=== PATIENT | male | born 1970 | race Caucasian/White ===

== ENCOUNTER 2018-11-30 16:41 | Outpatient (REF) | payer BC, SELFPAY ==
[2018-11-30 23:02] LABS: TSH (W/Ref FT4) 1.11 uIU/mL (0.358-3.74)
== END 2018-11-30 17:01 ==
LOC: NCHCN 16:41
PROVIDERS: PCP Internal Medicine; Visit Provider Family Medicine
DX: E03.9 Hypothyroidism, unspecified (principal)
CPT/HCPCS: 84443

== ENCOUNTER 2019-05-18 09:52 | Outpatient (REF) | payer BC, SELFPAY ==
[2019-05-18 12:57] LABS: ALT 51 U/L (12-78); AST 23 U/L (15-37); Albumin 4.2 g/dL (3.4-5.0); Alkaline Phosphatase 73 U/L (46-116); Anion Gap 12.6 mmol/L (3-11); BUN 14 mg/dL (7-18); Bilirubin, Total 0.6 mg/dL (0.2-1.0); CO2 23.4 mmol/L (21.0-32.0); CREATININE 1.05 mg/dL (0.70-1.30); Calcium 8.7 mg/dL (8.5-10.1); Calculated LDL 110 mg/dL; Chloride 105 mmol/L (98-107); Cholesterol 170 mg/dL (50-200); Glucose 115 mg/dL (70-100); HDL Cholesterol 47 mg/dL (40-60); Potassium 4.4 mmol/L (3.5-5.1); Sodium 141 mmol/L (136-145); Total Protein 7.3 g/dL (6.4-8.2); Triglyceride 65 mg/dL (30-150)
== END 2019-05-18 10:12 ==
LOC: NCHCN 09:52
PROVIDERS: PCP Internal Medicine; Visit Provider Family Medicine
DX: Z00.00 Encounter for general adult medical examination without abnormal findings (principal); I10 Essential (primary) hypertension; Z13.220 Encounter for screening for lipoid disorders
CPT/HCPCS: 80053; 80061; 83721

== ENCOUNTER 2019-10-06 09:39 | Outpatient (CLI) | payer BC, SELFPAY ==
--- NOTE | 2019-10-06 14:50 | DI.MRI_ITS ---
EXAM: MR LUMBAR SPINE WO CLINICAL HISTORY: LUMBAR RADICULOPATHY, LEFT M54.16, FOOT DROP. TECHNIQUE: Multiplanar multisequence MRI was performed. COMPARISON: ABD PELVIS WITH CONTRAST from 08/08/2012 FINDINGS: L1-2: Mild concentric disc bulging. L2-3: Moderate loss of disc height, endplate osteophytes and broad-based disc bulging. There is a gerardo perimposed small central disc protrusion. Mild to moderate facet degenerative changes and ligamentou s hypertrophy combine to produce moderate to severe central canal stenosis. [id number] bilater al neural foraminal narrowing. L3-4: Mild loss of disc height. Concentric disc bulging. Moderate facet degenerative changes and li gamentous hypertrophy combining to produce mild central canal stenosis. There is moderate left and s evere right neural foraminal narrowing. L4-5: Mild loss of disc height and broad-based disc bulging, eccentric toward the right. Mild-to-mod erate facet degenerative changes and ligamentous hypertrophy combining to produce moderate central ca nal stenosis as well as severe right and moderate left neural foraminal narrowing. L5-S1: Mild loss of disc height. Mild concentric disc bulging. Mild facet degenerative changes. Mi ld right neural foraminal narrowing. Moderate left neural foraminal narrowing. The conus medullaris appears normal. The aorta is normal in diameter. There is a mild degenerative scoliosis. Cord signal is normal with the exception of degenerative signal changes in the endplates. IMPRESSION: Degenerative disc changes and facet degenerative changes combine to produce central canal stenosis, g reatest at L2-3 where there is also a small superimposed central disc protrusion. There is multileve l bilateral neural foraminal narrowing.
== END 2019-10-06 09:59 ==
PROVIDERS: PCP Family Medicine; Visit Provider Specialist/Technologist Athletic Trainer
DX: M54.17 Radiculopathy, lumbosacral region (principal); M51.17 Intervertebral disc disorders with radiculopathy, lumbosacral region; M47.27 Other spondylosis with radiculopathy, lumbosacral region
CPT/HCPCS: 72148

== ENCOUNTER 2021-08-17 16:44 | Outpatient (REF) | payer BC, SELFPAY ==
[2021-08-17 20:46] LABS: ALT 42 U/L (16-63); AST 20 U/L (15-37); Albumin 4.6 g/dL (3.4-5.0); Alkaline Phosphatase 59 U/L (46-116); Anion Gap 9.2 mmol/L (3-11); BUN 23 mg/dL (7-18); Bilirubin, Total 0.4 mg/dL (0.2-1.0); CO2 25.8 mmol/L (21.0-32.0); CREATININE 1.1 mg/dL (0.70-1.30); Calculated LDL 107 mg/dL (<100); Chloride 103 mmol/L (98-107); Cholesterol 181 mg/dL (<200); Glucose 96 mg/dL (74-106); HDL Cholesterol 55 mg/dL (40-60); Potassium 4.5 mmol/L (3.5-5.1); Sodium 138 mmol/L (136-145); TSH (W/Ref FT4) 2.48 uIU/mL (0.36-3.74); Total Protein 7.7 g/dL (6.4-8.2); Triglyceride 96 mg/dL (<150)
[2021-08-17 21:05] LABS: Hemoglobin A1C 6.2 % (<5.7)
== END 2021-08-17 16:45 | disposition home or self-care (01) ==
LOC: NCHCN 16:44
PROVIDERS: PCP Family Medicine; Visit Provider Family Medicine
DX: R73.03 Prediabetes (principal); I10 Essential (primary) hypertension; E03.9 Hypothyroidism, unspecified
CPT/HCPCS: 80053; 80061; 83036; 84443

== ENCOUNTER 2022-12-19 10:12 | Outpatient (REF) | payer BC, SELFPAY | END 2022-12-19 10:13 | disposition home or self-care (01) | LOC: LBN 10:12 | PROVIDERS: PCP Family Medicine; Visit Provider Physician Assistant Medical | DX: J02.9 Acute pharyngitis, unspecified (principal) | CPT/HCPCS: 87077; 87070 ==

== ENCOUNTER 2023-03-31 16:39 | Outpatient (REF) | payer BC, SELFPAY ==
[2023-03-31 15:29] LABS: Abs Immature Grans 0.05 10^3/uL (0.0-0.06); Absolute Basophil Count 0.06 10^3/uL (0.0-0.2); Absolute Eosinophil Count 0.05 10^3/uL (0.0-0.7); Absolute Lymphocyte Count 0.63 10^3/uL (1.2-3.4); Absolute Monocyte Count 0.48 10^3/uL (0.1-0.8); Absolute Neutrophil Count 3.23 10^3/uL (1.2-6.7); Basophils % 1.3; Eosinophils % 1.1; HCT 43.2 % (40.0-50.0); HGB 14.8 g/dL (13.5-17.5); Immature Grans % 1.1; MCH 30.3 pg (27.0-33.0); MCHC 34.3 % (32.0-36.0); MCV 88 fL (80-95); MPV 9.7 fL (8.0-11.0); Monocytes % 10.7; Neutrophils % 71.8; Platelet Count 212 10^3/uL (130-400); RBC 4.89 10^6/uL (4.36-5.78); RDW 12.8 % (11.8-14.1); RDW-SD 41.7 fL
[2023-03-31 15:56] LABS: ALT 56 U/L (16-63); AST 31 U/L (15-37); Albumin 4.5 g/dL (3.4-5.0); Alkaline Phosphatase 70 U/L (46-116); Anion Gap 4.9 mmol/L (3-11); BUN 16 mg/dL (7-18); Bilirubin, Total 0.5 mg/dL (0.2-1.0); CO2 26.1 mmol/L (21.0-32.0); Calcium 9.1 mg/dL (8.5-10.1); Chloride 103 mmol/L (98-107); Estimated GFR 91.69 (mL/min/1.73m2); Glucose 135 mg/dL (74-106); Potassium 4.1 mmol/L (3.5-5.1); Sodium 134 mmol/L (136-145); Total Protein 7.6 g/dL (6.4-8.2)
[2023-04-01 10:32] LABS: Lyme Ab w Rflx to Lyme Confirm Negative (Negative)
[2023-04-03 23:25] LABS: B. miyamotoi PCR Negative (Negative); Babesia divergens/MO-1 Negative (Negative); Babesia duncani Negative (Negative); Babesia microti Negative (Negative); Ehrlichia chaffeensis Negative (Negative); Ehrlichia ewingii/canis Negative (Negative); Ehrlichia muris eauclairensis Negative (Negative)
[2023-04-04 00:44] LABS: Anaplasma phagocytophilum Positive (Negative)
== END 2023-03-31 16:40 | disposition home or self-care (01) ==
LOC: LBN 16:39
PROVIDERS: PCP Family Medicine; Visit Provider Nurse Practitioner Family
DX: W57.XXXA Bitten or stung by nonvenomous insect and other nonvenomous arthropods, initial encounter (principal); T14.8XXA Other injury of unspecified body region, initial encounter
CPT/HCPCS: 80053; 87798; 85025; 86618

== ENCOUNTER 2023-04-01 10:53 | Emergency (ER) | payer BC, SELFPAY ==
[2023-04-01 10:55] VITALS: BP 137/95; PULSE 83; RESP 16; O2SAT 99
--- NOTE | 2023-04-01 11:00 | RT.EKG_ITS ---
APPROVED REPORT Exam: Resting ECG Reason for Exam: syncopal episode Patient Location: E HR:80 bpm ECG Measurements Heart Rate 80 AXIS OH 200 P 31 QRSd 99 QRS -14 QT 343 T 25 QTc 396 Conclusion Sinus rhythm...normal P axis, V-rate 60- 99 Probable left atrial enlargement...P >50mS, <-0.10mV V1 Probable left ventricular hypertrophy...multiple LVH criteria sinus rhtythm, left axis, normal intervals non ischemic
[2023-04-01 11:10] VITALS: RESP 15
--- NOTE | 2023-04-01 11:30 | DI.RAD_ITS ---
Exam(s) XR CHEST 2V PA LATERAL EXAM: XR CHEST 2V PA LATERAL CLINICAL HISTORY: chills, sweats TECHNIQUE: 2D digital imaging was performed of the chest. Two images were obtained. PA and lateral views were obtained. COMPARISON: No exams were available for comparison FINDINGS: MEDIASTINUM: Normal. HEART: Normal. PULMONARY VASCULATURE: Normal. LUNGS: There is linear atelectasis in the left lung base. No focal consolidating infiltrates are pre sent. PLEURAL SPACE: No pleural effusion or pneumothorax. BONE:Within normal limits for the patient's age. OTHER FINDINGS:Normal. IMPRESSION: No acute pulmonary findings. DATA REPOSITORY: RADIATION DOSE DELIVERED:
--- NOTE | 2023-04-01 11:39 | W.ED.GENAD ---
Discharge Plan Disposition Patient Disposition: Home Discharge Details Chief Complaint: [id number] Clinical Impression: Chills, Cold sweat Primary Care Provider: Aline Rogers ED Provider: Zay Nair Home Meds and New Rx's Prescriptions: No Action levothyroxine 137 MCG tablet 150 mcg PO DAILY naproxen sodium [Aleve] 220 MG capsule 220 mg PO PRN PRN hydrocodone-acetaminophen 1 EACH tablet 1 ea PO QID PRN PRN (Reason: Pain) Qty: 12 0RF cyclobenzaprine 10 MG tablet 10 mg PO TID PRN PRN (Reason: Spasms) Qty: 10 0RF methylprednisolone 4 MG tablets,dose pack 4 mg PO DIRECTED Qty: 1 0RF losartan 100 mg tablet 100 mg PO DAILY doxycycline hyclate 100 mg tablet 100 mg PO BID Discharge Instructions Additional Instructions: Please continue with your antibiotics as prescribed. Please return to the emergency part for any worsening symptoms Stand Alone Forms: Work Release Medical Decision Making 52-year-old male recent tick removed from right side approximately 1 week ago, has had intermittent chills and sweating episodes over the past week, no chest pain or shortness of breath no respiratory symptoms no urinary symptoms no nausea or vomiting or diarrhea. Small scab on right thoracic wall without surrounding induration erythema or fluctuance. Per patient blood cultures tick panel and COVID analysis were performed at urgent care, will start empirically on doxycycline given tick removal and sweats/chills. Consider viral illness versus bacterial illness versus tickborne illness versus ACS. Will obtain screening labs imaging fluids analgesia close reassessment. Given afebrile nontachycardic normotensive will likely be discharged home with home care instructions and return precautions. To follow-up on tick panel and blood cultures 14: 18 resting comfortably no acute distress. Labs unremarkable. Awaiting results from tick and blood culture panel. Patient will continue with doxycycline. Given home care instructions and return precautions HPI General Date/Time Provider Initiated Documentation: 04/01/23 11:31. HPI Narrative: 52-year-old male presents with several days of intermittent chills and sweats, was seen at urgent care where blood cultures and a tick panel were drawn as well as a COVID screening, will start empirically on doxycycline. Has had intermittent sweating episodes and fatigue over the last several days. No chest pain or shortness of breath no nausea no vomiting no diarrhea. Currently feeling asymptomatic. Related Data Home Medications Medication Instructions Recorded Confirmed cyclobenzaprine 10 mg tablet 10 mg PO TID PRN PRN Spasms #10 11/05/15 tabs hydrocodone 5 mg-acetaminophen 325 1 ea PO QID PRN PRN Pain ##12 11/05/15 mg tablet levothyroxine 137 mcg tablet 150 mcg PO DAILY 11/05/15 04/01/23 methylprednisolone 4 mg tablets in 4 mg PO DIRECTED #1 packet 11/05/15 a dose pack naproxen sodium 220 mg capsule 220 mg PO PRN PRN 11/05/15 04/01/23 (Aleve) doxycycline hyclate 100 mg tablet 100 mg PO BID 04/01/23 04/01/23 losartan 100 mg tablet 100 mg PO DAILY 04/01/23 04/01/23 Previous Rx's Medication Instructions Recorded cyclobenzaprine 10 mg tablet 10 mg PO TID PRN PRN Spasms #10 11/05/15 tabs hydrocodone 5 mg-acetaminophen 325 1 ea PO QID PRN PRN Pain ##12 11/05/15 mg tablet methylprednisolone 4 mg tablets in 4 mg PO DIRECTED #1 packet 11/05/15 a dose pack Allergies Allergy/AdvReac Type Severity Reaction Status Date / Time ceramic dust Allergy Uncoded 04/01/23 11:04 General Stated Complaint: [id number] CHRISTOPHER: 3 Review of Systems Narrative: Review of Systems Constitutional: Fatigue, chills, sweats Eyes: negative ENT: negative Cardiovascular: negative Respiratory: negative Gastrointestinal: negative : negative Musculoskeletal: negative Skin: negative Neurologic: negative Psych: negative PFSH All Active Problems (Updated 04/01/23 @ 14:20 by Zay Nair MD) Chills (Acute) Cold sweat (Acute) Social History Smoking/Tobacco Use Status: Current every day Tobacco Type: smokeless tobacco Smoking risk assessment performed?: Yes Alcohol Intake: never Drug use: Never Substance use type: does not use Do you feel safe at home: Yes Do you feel safe in your relationship?: Yes Exam Narrative Exam Narrative: Physical Examination General: alert, awake, cooperative, resting comfortably, no acute distress HEENT: normocephalic, atraumatic; PERRL, EOM intact, conjunctiva normal; no nasal discharge; moist mucous membranes, oral and pharyngeal mucosa normal, tolerating secretions Neck: supple, trachea midline; full ROM Chest: normal to inspection Respiratory: normal respiratory effort, speaking in full sentences, clear to auscultation, no wheezing, rales or rhonchi Cardiac: regular rate, regular rhythm, S1S2 intact, no murmurs rubs or gallops GI: abdomen soft, non-tender, non-distended; no palpable mass or hepatosplenomegaly Skin: Small scab right lateral thoracic wall where tick was removed, no surrounding erythema induration or fluctuant Neuro: AAOx3, normal speech, moving all extremities Psych: Appropriate mood and affect Course Vital Signs Vital signs: Vital Signs Pulse 83 04/01/23 10:55 Respiratory Rate 16 04/01/23 10:55 Blood Pressure 137/95 H 04/01/23 10:55 Pulse Oximetry 99 04/01/23 10:55 Pulse 83 04/01/23 10:55 Respiratory Rate 15 04/01/23 11:10 Respiratory Effort Normal 04/01/23 11:10 Respiratory Depth Normal 04/01/23 11:10 Respiratory Pattern Normal 04/01/23 11:10 Blood Pressure 137/95 H 04/01/23 10:55 Blood Pressure Position Sitting 04/01/23 10:55 Pulse Oximetry 99 04/01/23 10:55 Oxygen Delivery Method Room Air 04/01/23 10:55 Oxygen Flow Rate 0 04/01/23 10:55 Pain Level 0 04/01/23 10:55
[2023-04-01] MEDS: Normal Saline 1,000 ML 1000 ML IV (11:52)
[2023-04-01 11:53] LABS: Abs Immature Grans 0.04 10^3/uL (0.0-0.06); Absolute Basophil Count 0.04 10^3/uL (0.0-0.2); Absolute Eosinophil Count 0.03 10^3/uL (0.0-0.7); Absolute Lymphocyte Count 0.36 10^3/uL (1.2-3.4); Absolute Monocyte Count 0.48 10^3/uL (0.1-0.8); Basophils % 0.9; Eosinophils % 0.7; HCT 45.2 % (40.0-50.0); HGB 15.4 g/dL (13.5-17.5); Immature Grans % 0.9; Lymphocytes % 8.4; MCHC 34.1 % (32.0-36.0); MCV 88 fL (80-95); MPV 9.1 fL (8.0-11.0); Monocytes % 11.2; Neutrophils % 77.9; Platelet Count 169 10^3/uL (130-400); RBC 5.14 10^6/uL (4.36-5.78); RDW 12.9 % (11.8-14.1); RDW-SD 41.6 fL; WBC 4.27 10^3/uL (4.4-10.8)
[2023-04-01 11:55] LABS: Absolute Neutrophil Count 3.33 10^3/uL (1.2-6.7)
[2023-04-01 12:21] LABS: ALT 76 U/L (16-63); AST 49 U/L (15-37); Albumin 4.3 g/dL (3.4-5.0); Alkaline Phosphatase 72 U/L (46-116); Anion Gap 7.5 mmol/L (3-11); BUN 17 mg/dL (7-18); Bilirubin, Total 0.7 mg/dL (0.2-1.0); CO2 25.5 mmol/L (21.0-32.0); Calcium 8.8 mg/dL (8.5-10.1); Chloride 100 mmol/L (98-107); Estimated GFR 91.69 (mL/min/1.73m2); Glucose 165 mg/dL (74-106); Sodium 133 mmol/L (136-145); TSH (W/Ref FT4) 0.69 uIU/mL (0.36-3.74); Total Protein 8.2 g/dL (6.4-8.2); Troponin I < 50 ng/L (<or=60)
[2023-04-01 13:14] LABS: COVID-19 PCR Negative (Negative); Influenza A PCR Negative (Negative); Influenza B PCR Negative (Negative); RSV PCR Negative (Negative)
[2023-04-01 13:15] LABS: Source Nasopharynx
[2023-04-01 13:28] LABS: Bilirubin Negative (Negative); Blood Negative (Negative); Clarity Clear (Clear); Glucose Negative (Negative); Ketones Negative (Negative); Leukocyte Esterase Negative (Negative); Nitrite Negative (Negative); Specific Gravity 1.025 (1.005-1.025); Urobilinogen 0.2 mg/dL (Up to 0.2)
[2023-04-01 13:41] LABS: Bacteria Few HPF (Negative); Casts Negative LPF (Negative); Crystals Negative HPF (Negative); Epithelial Cells Negative HPF (Negative); Mucus Heavy (Negative); RBC 0-2 HPF (0-2); WBC 0-2 HPF (0-5)
[2023-04-01 13:42] LABS: C & S Indicated? No
[2023-04-02 11:04] LABS: Lyme Ab w Rflx to Lyme Confirm Negative (Negative)
[2023-04-05 00:29] LABS: B. miyamotoi PCR Negative (Negative); Babesia divergens/MO-1 Negative (Negative); Babesia duncani Negative (Negative); Babesia microti Negative (Negative); Ehrlichia chaffeensis Negative (Negative); Ehrlichia ewingii/canis Negative (Negative); Ehrlichia muris eauclairensis Negative (Negative)
[2023-04-05 06:15] LABS: Anaplasma phagocytophilum Positive (Negative)
== END 2023-04-01 14:30 | disposition home or self-care (01) ==
PROVIDERS: Emergency Provider Emergency Medicine; PCP Family Medicine
DX: R68.83 Chills (without fever) (principal); R55 Syncope and collapse
CPT/HCPCS: 36410; 36415; 80053; 87040; 87637; 87798; 93005; 96360; 99284; 71046; 81003; 81015; 84443; 84484; 85025; 86618; 93010; 99283

== ENCOUNTER 2023-07-18 17:47 | Outpatient (REF) | payer BC, SELFPAY ==
[2023-07-18 16:22] LABS: Hemoglobin A1C 6.3 % (<5.7)
[2023-07-18 16:29] LABS: ALT 39 U/L (16-63); AST 20 U/L (15-37); Albumin 4.7 g/dL (3.4-5.0); Alkaline Phosphatase 67 U/L (46-116); Anion Gap 9.5 mmol/L (3-11); BUN 19 mg/dL (7-18); Bilirubin, Total 0.6 mg/dL (0.2-1.0); CO2 26.5 mmol/L (21.0-32.0); CREATININE 0.9 mg/dL (0.70-1.30); Calcium 9.3 mg/dL (8.5-10.1); Calculated LDL 125 mg/dL (<100); Chloride 103 mmol/L (98-107); Cholesterol 188 mg/dL (<200); Glucose 122 mg/dL (74-106); HDL Cholesterol 53 mg/dL (40-60); Potassium 4.5 mmol/L (3.5-5.1); Sodium 139 mmol/L (136-145); TSH 1.29 uIU/mL (0.36-3.74); Total Protein 7.6 g/dL (6.4-8.2); Triglyceride 53 mg/dL (<150)
== END 2023-07-18 17:48 | disposition home or self-care (01) ==
LOC: NCHCN 17:47
PROVIDERS: PCP Family Medicine; Visit Provider Family Medicine
DX: I10 Essential (primary) hypertension (principal); R73.03 Prediabetes; Z00.00 Encounter for general adult medical examination without abnormal findings; E03.9 Hypothyroidism, unspecified
CPT/HCPCS: 80053; 80061; 83036; 84443

== ENCOUNTER 2023-09-23 09:02 | Outpatient (CLI) | payer BC, SELFPAY ==
--- NOTE | 2023-09-23 08:45 | DI.RAD_ITS ---
Exam(s) XR SHOULDER RT COMPLETE 2+V EXAM: XR SHOULDER RT COMPLETE 2+V CLINICAL HISTORY: shoulder pain. TECHNIQUE: 2D digital imaging was performed. COMPARISON: CR XR CHEST 2V PA LATERAL from 04/01/2023 FINDINGS: Two views. No evidence of fracture nor dislocation. No soft tissue calcifications evident. No obvious degenera tive changes in the glenohumeral joint. Bone density normal. No osseous lesions. Mild degenerative changes in the ipsilateral AC joint. IMPRESSION: Minimal findings. DATA REPOSITORY: RADIATION DOSE DELIVERED:
== END 2023-09-23 09:03 | disposition home or self-care (01) ==
LOC: DIORS 09:02
PROVIDERS: PCP Family Medicine; Visit Provider Student in an Organized Health Care Education/Training Program
DX: M25.511 Pain in right shoulder (principal)
CPT/HCPCS: 73030

== ENCOUNTER → 2023-10-14 02:48 | Outpatient (CLI) | payer BC, SELFPAY ==
--- NOTE | 2023-10-14 07:00 | DI.MRI_ITS ---
Exam(s) MR UPPER JOINT RT WO EXAM: MR UPPER JOINT RT WO CLINICAL HISTORY: R SHOULDER PAIN,rt rotator cuff tear,m75.101. TECHNIQUE: Multiplanar multisequence MRI was performed. COMPARISON: CR XR SHOULDER RT COMPLETE 2+V from 09/23/2023 FINDINGS: The examination is limited due to patient motion artifact. BONES: There is no fracture or contusion pattern. Small subchondral cysts are seen in the glenoid and the humeral head. JOINTS: There are degenerative changes seen at the acromioclavicular joint. The glenohumeral joint i s normal. TENDONS: Supraspinatus: There is tendinosis of the supraspinatus tendon near the musculotendinous junction (se doug [id number], image 12). Infraspinatus: There is hyperintense signal seen in the infraspinatus tendon adjacent to the supraspi natus tendon consistent with a partial tear and/or tendinosis. Subscapularis: There is tendinosis of the subscapularis tendon. Teres Minor: Unremarkable. Biceps and Lamont: Unremarkable. MUSCLES: Unremarkable. GLENOID LABRUM: Unremarkable on this noncontrast examination. SOFT TISSUES: There is a small amount of edema in the subdeltoid subacromial bursa. LIGAMENTS: Unremarkable. OTHER: IMPRESSION: 1. Tendinosis of the supraspinatus and subscapularis tendons. 2. Hyperintense signal seen in the infraspinatus tendon which may represent a partial tear and/or ten dinosis. 3. Degenerative changes of the acromioclavicular joint. 4. Small amount of fluid seen in the subacromial subdeltoid bursa. DATA REPOSITORY:
== END ==
PROVIDERS: PCP Family Medicine; Visit Provider Student in an Organized Health Care Education/Training Program
DX: M67.813 Other specified disorders of tendon, right shoulder (principal); M25.411 Effusion, right shoulder
CPT/HCPCS: 73221

== ENCOUNTER 2025-02-07 15:04 | Outpatient (REF) | payer BC, SELFPAY ==
[2025-02-07 22:19] LABS: ALT 39 U/L (16-63); AST 19 U/L (15-37); Albumin 4.3 g/dL (3.4-5.0); Alkaline Phosphatase 64 U/L (46-116); Anion Gap 9.3 mmol/L (3-11); BUN 14 mg/dL (7-18); Bilirubin, Total 0.5 mg/dL (0.2-1.0); CO2 26.7 mmol/L (21.0-32.0); Calcium 9.3 mg/dL (8.5-10.1); Calculated LDL 117 mg/dL (<100); Chloride 107 mmol/L (98-107); Cholesterol 192 mg/dL (<200); Estimated GFR 90.56 (mL/min/1.73m2); Glucose 137 mg/dL (74-106); HDL Cholesterol 57 mg/dL (>or=40); Potassium 4.6 mmol/L (3.5-5.1); Sodium 143 mmol/L (136-145); TSH 2.37 uIU/mL (0.36-3.74); Total Protein 7.4 g/dL (6.4-8.2); Triglyceride 93 mg/dL (<150)
[2025-02-08 18:08] LABS: T4, Free 1.6 ng/dL (0.8-2.2)
== END 2025-02-07 15:05 | disposition home or self-care (01) ==
LOC: NCHCN 15:04
PROVIDERS: PCP Family Medicine; Visit Provider Family Medicine
DX: I10 Essential (primary) hypertension (principal); Z13.220 Encounter for screening for lipoid disorders; E03.9 Hypothyroidism, unspecified
CPT/HCPCS: 80053; 80061; 82043; 82570; 84439; 84443